=== PATIENT | female | born 1990 | race Caucasian/White ===

== ENCOUNTER 2020-11-17 13:03 | Outpatient (CLI) | payer OTHER, SELFPAY ==
[2020-11-17] MEDS: RHO(D) IMMUNE GLOBULIN 300 MCG SYRINGE IM (17:36)
== END 2020-11-17 13:04 | disposition home or self-care (01) ==
LOC: ANHLAB 13:07
PROVIDERS: PCP Obstetrics & Gynecology; Visit Provider Obstetrics & Gynecology
DX: Z34.80 Encounter for supervision of other normal pregnancy, unspecified trimester (principal); Z3A.00 Weeks of gestation of pregnancy not specified
CPT/HCPCS: 36415; 85461; 90384; J2790

== ENCOUNTER 2021-01-18 05:10 | Inpatient (IN) | payer OTHER, SELFPAY ==
[2021-01-18] VITALS (81 sets, daily range): BP systolic 120–157; BP diastolic 73–118; PULSE 71–115; RESP 14–18; TEMP 36.6–37.3; O2SAT 99–100; BMI 28.2
--- NOTE | ~2021-01-18 | US_ITS ---
EXAMINATION: US pelvic complete DATE: 01/18/2021 14:55 INDICATION: Vaginal bleeding 2 hours . Assess for retained products of conception. TECHNIQUE: Multiple transabdominal sonographic images of the pelvis were obtained. COMPARISON: None. FINDINGS: The uterus measures 8.8 x 12.8 x 10.1 cm. The endometrial complex measures 10 mm in thickness at the fundus. The more caudal endometrial canal at the lower uterine segment is however markedly thickened , measuring up to 6.8 cm AP diameter on the sagittal imaging and contains a large amount of heterogen eous echogenic and hypoechoic material. There does appear to be a small region with internal vascular flow on color Doppler within this material consistent with retained products of conception. The ovar ies are not visualized. No evident free fluid in the pelvis. IMPRESSION: 1. Likely retained products of conception with large amount of heterogeneous material with vascular f low on color Doppler within the endometrial canal the lower uterine segment which is thickened to 6.8 cm. Reviewed, dictated and finalized at location A. IMPRESSION: 1. Likely retained products of conception with large amount of heterogeneous ma terial with vascular flow on color Doppler within the endometrial canal the low er uterine segment which is thickened to 6.8 cm.
--- NOTE | 2021-01-18 05:29 | LDADM ---
This patient, Katherine Moran, was admitted to Labor/Delivery/Recovery 104 on 01/18/21 at 05:10. Plans for labor, pain management and were discussed with patient. Patient/family oriented to hospital policies and general routines including ID bracelet, bed and alarms, visiting hours, pain management, procedures, bathroom and other care routines, personal items, smoking policy, room service/diet and guest tray routines, security routines, and visiting hours. Patient/Family are encouraged to report perceived risks to care and to ask questions if they do not understand what they are told or what they should do. See OBIX for further documentation.
[2021-01-18 05:48] LABS: Basophils Absolute Auto 0.1 K/mm3 (0.0-0.1); Basophils Percent Auto 0.7 % (0.2-1.2); Eosinophils Absolute Auto 0.2 K/mm3 (0-0.3); Eosinophils Percent Auto 1.7 % (0-4.4); Hematocrit 32.2 % (37.0-47.0); Immature Granulocyte Absolute 0.47 K/mm3 (0.00-0.031); Immature Granulocyte Percent A 4.3 % (0-0.5); Lymphocytes Absolute Auto 3.37 K/mm3 (0.9-3.2); Lymphocytes Percent Auto 30.9 % (18.3-44.2); Mean Corpuscular HGB Conc 34.2 g/dl (32-36); Mean Corpuscular Hemoglobin 33.5 pg (26-34); Mean Corpuscular Volume 98.2 fl (80-100); Monocytes Absolute Auto 0.6 K/mm3 (0.1-0.6); Monocytes Percent Auto 5.6 % (2.6-8.5); Neutrophils Absolute Auto 6.2 K/mm3 (1.3-6.7); Neutrophils Percent Auto 56.8 % (45.5-73.1); Platelet Count Result 155 k/mm3 (150-375); Red Blood Count 3.28 M/mm3 (4.2-5.4); Red Cell Distribution Width 13.5 % (11.5-14.5); White Blood Count 10.9 K/mm3 (4.5-10.0)
[2021-01-18] MEDS: OXYTOCIN 30 UNITS/NS 500 ML 30 UNITS/500 ML BAG IV CONT (05:52)
[2021-01-18] MEDS: LACTATED RINGERS 1,000 ML 125 ML IV CONT ×2 (05:52→09:22)
[2021-01-18 05:58] LABS: Alanine Aminotransferase 10 U/L (4-35); Albumin Level 3.4 g/dL (3.5-5.1); Alkaline Phosphatase 119 U/L (38-126); Anion Gap 6 mmol/L (8-16); Aspartate Amino Transferase 20 U/L (14-36); Bilirubin,Total 0.6 mg/dL (0.2-1.3); Blood Urea Nitrogen 10 mg/dL (7-17); Carbon Dioxide 21 mmol/L (22-30); Chloride 107 mmol/L (98-107); Estimated CRCL calculation 119 ml/min; Estimated Glomerular Filt Rate > 60; Glucose 97 mg/dL (65-105); Potassium 3.9 mmol/L (3.4-5.0); Sodium 134 mmol/L (137-145); Uric Acid 4.8 mg/dL (2.5-7.5)
--- NOTE | 2021-01-18 05:59 | PM.IMHP ---
H&P: HPI History of Present Illness Date/Time: 01/18/21 05:59 30-year-old 1 para 0 whose last menstrual period was 04/29/2020, EDC is 01/31/2021, presents at 38 and half weeks gestation for induction labor. She has a 10 week ultrasound that confirmed dates. Her blood pressures with enlarged CD she is negative for group B strep Chief Complaint: induction of labor secondary to elevated blood pressure Review of Systems Review of Systems: All systems reviewed & are unremarkable except as noted in HPI and below PMFSH Family History Family History Father Hypertension Grandparent Gout Diabetes mellitus Cancer Heart disease Social History Social History Smoking status: Never smoker Substance use: never Spiritual care concerns: No Meds Home Medications and Allergies Home Medications Medication Instructions Recorded Confirmed Type prenat.vits,radha,jbg-ghbi-hbanq 1 tablet PO HS 01/04/21 01/04/21 History [ #2] Allergies Allergy/AdvReac Type Severity Reaction Status Date / Time No Known Allergies Allergy Verified 01/04/21 15:41 Vital Signs Vital Signs - 24 hr 01/18/21 05:35 01/18/21 05:45 Pulse Rate 95 102 H Blood Pressure 141/96 H 141/102 H Exam Const: General: no acute distress Eyes: General: appearance normal, both eyes and all related structures Neck: Neck: supple and no JVD Thyroid: thyroid normal Resp: Effort & Inspection: normal respiratory effort Auscultation: clear to auscultation bilaterally Cardio: Rate: regular rate Rhythm: regular rhythm GI: Inspection: non-distended GI Palp: Yes Soft to palpation, No Tenderness to palpation present (GI) and No Guarding due to palpation present (GI) Auscultation: normal bowel sounds : External Female Exam: normal external appearance Speculum Exam - Vagina: normal appearance of the vagina Speculum Exam - Cervix: Cervical os closed ( cervix 2/60/2. AROM clear. FHTs reassuring) Skin: General skin exam: no rashes or lesions noted Extrem: General: normal to inspection and no edema Psych: Mental Status: mental status grossly normal Affect: normal affect H&P: Results Labs Labs: Short CBC 01/18/21 Range/Units 05:40 WBC 10.9 H (4.5-10.0) K/mm3 Hgb 11.0 L (12.0-15.0) g/dL Hct 32.2 L (37.0-47.0) % Plt Count 155 (150-375) k/mm3 BMP 01/18/21 05:40 Sodium 134 L Potassium 3.9 Chloride 107 Carbon Dioxide 21 L BUN 10 Creatinine 0.70 Glucose 97 Calcium 9.0 Liver Function 01/18/21 Range/Units 05:40 Total Bilirubin 0.6 (0.2-1.3) mg/dL AST 20 (14-36) U/L ALT 10 (4-35) U/L Alkaline Phosphatase 119 (38-126) U/L Albumin 3.4 L (3.5-5.1) g/dL Assessment and Plan Additional Plan impression: 38+ week with elevated blood pressures Plan: Medical induction of labor. PIH labs are pending. she is an epidural candidate
--- NOTE | 2021-01-18 06:52 | WPDANESEPP ---
Anes - Eval Pre Procedure Procedure: Labor epidural Date/Time: 01/18/21 06:52 Surgeon: Erickson Preop Diagnosis: pain during labor Pre Op Diagnosis: IOL Patient Data Age: 30 Gender: F Height: 1.75 m Weight: 86.8 kg Last Vital Signs Pulse 84 01/18/21 06:45 BP 149/94 H 01/18/21 06:45 Allergies Allergy/AdvReac Type Severity Reaction Status Date / Time No Known Allergies Allergy Verified 01/04/21 15:41 Home Medications Medication Instructions Recorded Confirmed Type prenat.vits,radha,wdz-[id number] 1 tablet PO HS 01/04/21 01/18/21 History [ #2] Laboratory Tests 01/18/21 01/18/21 01/18/21 05:40 05:40 05:40 WBC 10.9 K/mm3 H K/mm3 (4.5-10.0) RBC 3.28 M/mm3 L M/mm3 (4.2-5.4) Hgb 11.0 g/dL L g/dL (12.0-15.0) Hct 32.2 % L % (37.0-47.0) MCV 98.2 fl fl (80-100) MCH 33.5 pg pg (26-34) MCHC 34.2 g/dl g/dl (32-36) RDW 13.5 % % (11.5-14.5) Plt Count 155 k/mm3 k/mm3 (150-375) MPV 12.0 fl H fl (7.4-10.4) Immature Gran % (Auto) 4.3 % H % (0-0.5) Neut % (Auto) 56.8 % % (45.5-73.1) Lymph % (Auto) 30.9 % % (18.3-44.2) [place] % (Auto) 5.6 % % (2.6-8.5) Eos % (Auto) 1.7 % % (0-4.4) Baso % (Auto) 0.7 % % (0.2-1.2) Lymph # (Auto) 3.37 K/mm3 H K/mm3 (0.9-3.2) [place] # (Auto) 0.6 K/mm3 K/mm3 (0.1-0.6) Eos # (Auto) 0.2 K/mm3 K/mm3 (0-0.3) Baso # (Auto) 0.1 K/mm3 K/mm3 (0.0-0.1) Abs Immat Gran (auto) 0.47 K/mm3 H K/mm3 (0.00-0.031) Absolute Neuts (auto) 6.2 K/mm3 K/mm3 (1.3-6.7) Absolute Nucleated RBC 0.0 K/mm3 K/mm3 (0.0-0.012) Nucleated RBC % 0.0 % % (0.0-0.2) Sodium 134 mmol/L L mmol/L (137-145) Potassium 3.9 mmol/L mmol/L (3.4-5.0) Chloride 107 mmol/L mmol/L (98-107) Carbon Dioxide 21 mmol/L L mmol/L (22-30) Anion Gap 6 mmol/L L mmol/L (8-16) BUN 10 mg/dL mg/dL (7-17) Creatinine 0.70 mg/dL mg/dL (0.7-1.0) Estim Creat Clear Calc 119 ml/min ml/min Estimated GFR > 60 (59 - ) Glucose 97 mg/dL mg/dL (65-105) Uric Acid 4.8 mg/dL mg/dL (2.5-7.5) Calcium 9.0 mg/dL mg/dL (8.4-10.2) Total Bilirubin 0.6 mg/dL mg/dL (0.2-1.3) AST 20 U/L U/L (14-36) ALT 10 U/L U/L (4-35) Alkaline Phosphatase 119 U/L U/L (38-126) Total Protein 6.0 g/dL L g/dL (6.3-8.2) Albumin 3.4 g/dL L g/dL (3.5-5.1) RPR Pending Patient hx anesthesia problems: none Family hx anesthesia problems: none PMFSH Family History Family History Father Hypertension Grandparent Gout Diabetes mellitus Cancer Heart disease Social History Social History Smoking status: Never smoker Substance use: never Spiritual care concerns: No Exam Day of Procedure 01/18/21 06:52
[2021-01-18 10:20] LABS: Rapid Plasma Reagin Non-Reactive (NonReactive)
--- NOTE | 2021-01-18 11:20 | PM.OBPNVD ---
OB - PN: Subj Subjective Date/time seen: 01/18/21 11:20 cx complte fhts reassuring epidural working begin pushing OB - PN: Obj Data Labs CBC & Chem 7: 01/18/21 05:40 01/18/21 05:40 Labs: Laboratory Results - last 24 hr 01/18/21 01/18/21 01/18/21 05:40 05:40 05:40 WBC 10.9 H RBC 3.28 L Hgb 11.0 L Hct 32.2 L MCV 98.2 MCH 33.5 MCHC 34.2 RDW 13.5 Plt Count 155 MPV 12.0 H Immature Gran % (Auto) 4.3 H Neut % (Auto) 56.8 Lymph % (Auto) 30.9 [place] % (Auto) 5.6 Eos % (Auto) 1.7 Baso % (Auto) 0.7 Lymph # (Auto) 3.37 H [place] # (Auto) 0.6 Eos # (Auto) 0.2 Baso # (Auto) 0.1 Abs Immat Gran (auto) 0.47 H Absolute Neuts (auto) 6.2 Absolute Nucleated RBC 0.0 Nucleated RBC % 0.0 Sodium 134 L Potassium 3.9 Chloride 107 Carbon Dioxide 21 L Anion Gap 6 L BUN 10 Creatinine 0.70 Estim Creat Clear Calc 119 Estimated GFR > 60 Glucose 97 Uric Acid 4.8 Calcium 9.0 Total Bilirubin 0.6 AST 20 ALT 10 Alkaline Phosphatase 119 Total Protein 6.0 L Albumin 3.4 L RPR Non-reactive Blood Type Antibody Screen Antibody Identification Antigen Identification LUPE, IgG Interpret LUPE, Poly Interpret LUPE, Complement Interp 01/18/21 05:40 WBC RBC Hgb Hct MCV MCH MCHC RDW Plt Count MPV Immature Gran % (Auto) Neut % (Auto) Lymph % (Auto) [place] % (Auto) Eos % (Auto) Baso % (Auto) Lymph # (Auto) [place] # (Auto) Eos # (Auto) Baso # (Auto) Abs Immat Gran (auto) Absolute Neuts (auto) Absolute Nucleated RBC Nucleated RBC % Sodium Potassium Chloride Carbon Dioxide Anion Gap BUN Creatinine Estim Creat Clear Calc Estimated GFR Glucose Uric Acid Calcium Total Bilirubin AST ALT Alkaline Phosphatase Total Protein Albumin RPR Blood Type O Negative Antibody Screen Positive Antibody Identification Passive Due to RH Imm Glob Antigen Identification Cancelled LUPE, IgG Interpret Not Performed LUPE, Poly Interpret Negative LUPE, Complement Interp Not Performed OB - PN A/P Time Spent With Patient Time: Total time spent is greater than 50% in coordination of care (as documented) at patient's floor/unit and/or counseling patient:
--- NOTE | 2021-01-18 12:35 | P.PCNOB_ITS ---
OB - Delivery Note Procedure Delivery date: 01/18/21 Procedure: mil events: Induced HTN Intrapartal events: None Induction method: AROM Delivery augmentation: pitocin Delivery monitor: external FHT Route of delivery: Episiotomy description: None Laceration Description: Perineal - 1st Degree Delivery repair: vicryl Specimen: No Quantitative Blood Loss (ml): 158 Anesthesia type: Epidural Disposition: floor [place] Baby Date of : 01/18/21 Time of : 12:22 Weeks of gestation at delivery: 38 Weight (pounds): 6 Weight (ounces): 7 presentation: vertex position: Right Occiput Anterior Placenta delivery description: Spontaneous cord vessel description: 3 Vessels score one minute: 9 score five minutes: 9
[2021-01-18] MEDS: OXYTOCIN 30 UNITS/NS 500 ML 30 UNITS/500 ML BAG 125 UNITS IV CONT (13:00)
[2021-01-18] MEDS: BENZOCAINE 20% AER SPR (*SP) 56 GM CAN 1 SPRAY TOPICAL (14:22)
[2021-01-18] MEDS: WITCH HAZEL 40 PADS 1 PAD TOPICAL (14:22)
[2021-01-18] MEDS: IBUPROFEN 600 MG TABLET PO ×2 (14:22→20:30)
[2021-01-18] MEDS: miSOPROStol 200 MCG TABLET 800 MCG RECTAL (15:20)
--- NOTE | 2021-01-18 15:21 | PM.OBPNVD ---
OB - PN: Subj Subjective Date/time seen: 01/18/21 15:21 us shows retained placenta. patient continues to trickle. ofered suction d and c. patien agreeable OB - PN: Obj Data Labs CBC & Chem 7: 01/18/21 05:40 01/18/21 05:40 Labs: Laboratory Results - last 24 hr 01/18/21 01/18/21 01/18/21 05:40 05:40 05:40 WBC 10.9 H RBC 3.28 L Hgb 11.0 L Hct 32.2 L MCV 98.2 MCH 33.5 MCHC 34.2 RDW 13.5 Plt Count 155 MPV 12.0 H Immature Gran % (Auto) 4.3 H Neut % (Auto) 56.8 Lymph % (Auto) 30.9 [place] % (Auto) 5.6 Eos % (Auto) 1.7 Baso % (Auto) 0.7 Lymph # (Auto) 3.37 H [place] # (Auto) 0.6 Eos # (Auto) 0.2 Baso # (Auto) 0.1 Abs Immat Gran (auto) 0.47 H Absolute Neuts (auto) 6.2 Absolute Nucleated RBC 0.0 Nucleated RBC % 0.0 Sodium 134 L Potassium 3.9 Chloride 107 Carbon Dioxide 21 L Anion Gap 6 L BUN 10 Creatinine 0.70 Estim Creat Clear Calc 119 Estimated GFR > 60 Glucose 97 Uric Acid 4.8 Calcium 9.0 Total Bilirubin 0.6 AST 20 ALT 10 Alkaline Phosphatase 119 Total Protein 6.0 L Albumin 3.4 L RPR Non-reactive Blood Type Antibody Screen Antibody Identification Antigen Identification LUPE, IgG Interpret LUPE, Poly Interpret LUPE, Complement Interp 01/18/21 05:40 WBC RBC Hgb Hct MCV MCH MCHC RDW Plt Count MPV Immature Gran % (Auto) Neut % (Auto) Lymph % (Auto) [place] % (Auto) Eos % (Auto) Baso % (Auto) Lymph # (Auto) [place] # (Auto) Eos # (Auto) Baso # (Auto) Abs Immat Gran (auto) Absolute Neuts (auto) Absolute Nucleated RBC Nucleated RBC % Sodium Potassium Chloride Carbon Dioxide Anion Gap BUN Creatinine Estim Creat Clear Calc Estimated GFR Glucose Uric Acid Calcium Total Bilirubin AST ALT Alkaline Phosphatase Total Protein Albumin RPR Blood Type O Negative Antibody Screen Positive Antibody Identification Passive Due to RH Imm Glob Antigen Identification Cancelled LUPE, IgG Interpret Not Performed LUPE, Poly Interpret Negative LUPE, Complement Interp Not Performed Imaging Radiologist's impression: Impressions Pelvis Ultrasound 01/18/21 15:02 IMPRESSION: 1. Likely retained products of conception with large amount of heterogeneous material with vascular flow on color Doppler within the endometrial canal the lower uterine segment which is thickened to 6.8 cm. OB - PN A/P Time Spent With Patient Time: Total time spent is greater than 50% in coordination of care (as documented) at patient's floor/unit and/or counseling patient:
--- NOTE | 2021-01-18 15:30 | WPDANESEPPF ---
Anes - Initial Pre Proc Eval Procedure: Operation Date: 01/18/21 15:30 Proposed Procedures p Suction Dilitation and Curettage - Mazin Merino MD Date/Time: 01/18/21 15:30 Surgeon: Mazin Merino MD Pre Op Diagnosis: IOL Patient Data Age: 30 Gender: F Height: 5 ft 9 in Weight: 86.8 kg Last Vital Signs Temp 36.6 C 01/18/21 09:42 Pulse 93 01/18/21 14:45 BP 129/92 H 01/18/21 14:45 Pulse Ox 99 01/18/21 11:31 Allergies Allergy/AdvReac Type Severity Reaction Status Date / Time No Known Allergies Allergy Verified 01/04/21 15:41 Home Medications Medication Instructions Recorded Confirmed Type prenat.vits,radha,ldx-ungj-kalad 1 tablet PO HS 01/04/21 01/18/21 History [ #2] Laboratory Tests 01/18/21 01/18/21 01/18/21 05:40 05:40 05:40 WBC 10.9 K/mm3 H K/mm3 (4.5-10.0) RBC 3.28 M/mm3 L M/mm3 (4.2-5.4) Hgb 11.0 g/dL L g/dL (12.0-15.0) Hct 32.2 % L % (37.0-47.0) MCV 98.2 fl fl (80-100) MCH 33.5 pg pg (26-34) MCHC 34.2 g/dl g/dl (32-36) RDW 13.5 % % (11.5-14.5) Plt Count 155 k/mm3 k/mm3 (150-375) MPV 12.0 fl H fl (7.4-10.4) Immature Gran % (Auto) 4.3 % H % (0-0.5) Neut % (Auto) 56.8 % % (45.5-73.1) Lymph % (Auto) 30.9 % % (18.3-44.2) [place] % (Auto) 5.6 % % (2.6-8.5) Eos % (Auto) 1.7 % % (0-4.4) Baso % (Auto) 0.7 % % (0.2-1.2) Lymph # (Auto) 3.37 K/mm3 H K/mm3 (0.9-3.2) [place] # (Auto) 0.6 K/mm3 K/mm3 (0.1-0.6) Eos # (Auto) 0.2 K/mm3 K/mm3 (0-0.3) Baso # (Auto) 0.1 K/mm3 K/mm3 (0.0-0.1) Abs Immat Gran (auto) 0.47 K/mm3 H K/mm3 (0.00-0.031) Absolute Neuts (auto) 6.2 K/mm3 K/mm3 (1.3-6.7) Absolute Nucleated RBC 0.0 K/mm3 K/mm3 (0.0-0.012) Nucleated RBC % 0.0 % % (0.0-0.2) Sodium 134 mmol/L L mmol/L (137-145) Potassium 3.9 mmol/L mmol/L (3.4-5.0) Chloride 107 mmol/L mmol/L (98-107) Carbon Dioxide 21 mmol/L L mmol/L (22-30) Anion Gap 6 mmol/L L mmol/L (8-16) BUN 10 mg/dL mg/dL (7-17) Creatinine 0.70 mg/dL mg/dL (0.7-1.0) Estim Creat Clear Calc 119 ml/min ml/min Estimated GFR > 60 (59 - ) Glucose 97 mg/dL mg/dL (65-105) Uric Acid 4.8 mg/dL mg/dL (2.5-7.5) Calcium 9.0 mg/dL mg/dL (8.4-10.2) Total Bilirubin 0.6 mg/dL mg/dL (0.2-1.3) AST 20 U/L U/L (14-36) ALT 10 U/L U/L (4-35) Alkaline Phosphatase 119 U/L U/L (38-126) Total Protein 6.0 g/dL L g/dL (6.3-8.2) Albumin 3.4 g/dL L g/dL (3.5-5.1) RPR Non-reactive (NonReactive) Blood Type Antibody Screen Antibody Identification Antigen Identification LUPE, IgG Interpret LUPE, Poly Interpret LUPE, Complement Interp 05/12/21 05:40 WBC RBC Hgb Hct MCV MCH MCHC RDW Plt Count MPV Immature Gran % (Auto) Neut % (Auto) Lymph % (Auto) [place] % (Auto) Eos % (Auto) Baso % (Auto) Lymph # (Auto) [place] # (Auto) Eos # (Auto) Baso # (Auto) Abs Immat Gran (auto) Absolute Neuts (auto) Absolute Nucleated RBC Nucleated RBC % Sodium Potassium Chloride Carbon Dioxide Anion Gap BUN Creatinine Estim Creat Clear Calc Estimated GFR Glucose Uric Acid Calcium Total Bilirubin AST ALT Alkaline Phosphatase Total Protein Albumin RPR Blood Type O Negative Antibody Screen Positive Antibody Id
--- NOTE | 2021-01-18 16:01 | PM.PROC ---
Procedure Note - Detailed Date of procedure: 01/18/21 Pre-op diagnosis: IOL Surgeon: Mazin Merino MD Postop diagnosis: Retained placenta bleeding Procedure: Suction dilatation curettage Anesthesia: IV sedation and epidural EBL: 700cc Findings: Retained placenta and multiple clots in the uterus. Complications: Description of procedure: The patient was prepped draped in the normal sterile fashion placed in the dorsal lithotomy position. Under excellent IV sedation weighted speculum placed post formed vagina anterior lip of the cervix was grasped with the ring forceps liver clots were seen the uterus was then scraped over the entire 360? with 12. Suction curette removing lot of tissue and clot. The uterus clamped down nicely the small 1st degree tear was noted to be intact and was not bleeding. [id number] worth of clot and debris were noted in the uterus. No more bleeding was noted the patient was taken to recovery all sponge,, instrument counts were correct. There were no immediate complications
[2021-01-18] MEDS: ceFAZolin SODIUM 1 GM VIAL IV PUSH (16:05)
[2021-01-18] MEDS: LACTATED RINGERS 1,000 ML 30 ML IV CONT (16:07)
--- NOTE | 2021-01-18 17:15 | PC.NURSE ---
Patient transferred to post room #279 via stretcher. Support person present. Oriented to unit, room, information board, rooming in, admission packet and security measures. Patient verbalizes understanding.
[2021-01-19 00:29] VITALS: BP 133/93; PULSE 88; PULSE 99; RESP 16; RESP 18; TEMP 36.6; O2SAT 98; O2SAT 99
[2021-01-19] MEDS: IBUPROFEN 600 MG TABLET PO ×3 (04:03→16:43)
[2021-01-19] MEDS: ACETAMINOPHEN 325 MG TABLET 650 MG PO ×3 (04:03→16:42)
[2021-01-19 04:37] VITALS: BP 143/91; PULSE 93; RESP 16; TEMP 36.7; O2SAT 98
[2021-01-19 05:53] LABS: Hematocrit 24.2 % (37.0-47.0); Hemoglobin 8.4 g/dL (12.0-15.0)
--- NOTE | 2021-01-19 07:44 | PM.OBPNVD ---
OB - PN: Subj Subjective Date/time seen: 01/19/21 07:44 Patient comments: no complaints and pain well controlled baby status: doing well and nursing well OB - PN: Obj Data Labs CBC & Chem 7: 01/19/21 04:07 01/18/21 05:40 Labs: Laboratory Results - last 24 hr 01/18/21 01/18/21 01/19/21 05:40 05:40 04:07 Hgb 8.4 L Hct 24.2 L RPR Non-reactive Antibody Identification Passive Due to RH Imm Glob Antigen Identification Cancelled LUPE, IgG Interpret Not Performed LUPE, Poly Interpret Negative LUPE, Complement Interp Not Performed Imaging Radiologist's impression: Impressions Pelvis Ultrasound 01/18/21 15:02 IMPRESSION: 1. Likely retained products of conception with large amount of heterogeneous material with vascular flow on color Doppler within the endometrial canal the lower uterine segment which is thickened to 6.8 cm. OB - PN A/P Plan day: 1 Plan: routine care Time Spent With Patient Time: Total time spent is greater than 50% in coordination of care (as documented) at patient's floor/unit and/or counseling patient: Time with patient: less than 15 minutes Review of Systems Review of Systems: All systems reviewed & are unremarkable except as noted in HPI and below Exam Const: General: no acute distress Eyes: General: appearance normal, both eyes and all related structures Neck: Neck: supple and no JVD Thyroid: thyroid normal Resp: Effort & Inspection: normal respiratory effort Auscultation: clear to auscultation bilaterally Cardio: Rate: regular rate Rhythm: regular rhythm GI: Inspection: non-distended GI Palp: Yes Soft to palpation, No Tenderness to palpation present (GI) and No Guarding due to palpation present (GI) Auscultation: normal bowel sounds : General: Yes bladder normal to palpation External Female Exam: normal external appearance Speculum Exam - Vagina: normal vaginal discharge and No vaginal bleeding Speculum Exam - Cervix: nontender Bimanual exam- vagina & uterus: bladder normal to palpation and No Cervical tenderness present OB/external & speculum: No vaginal bleeding Skin: General skin exam: no rashes or lesions noted Extrem: General: normal to inspection and no edema Psych: Mental Status: mental status grossly normal Affect: normal affect
--- NOTE | 2021-01-19 07:45 | PC.NURSE ---
PT introductions made and plan of care discussed per post , pain management, bottle feeding, daily care activities through out the shift. PT received instructions per one to one discussion, using mom baby care guide as a resource. Pt and fob are recipients of such instructions. No barriers to learning noted. PT verbalized understanding of such care.
[2021-01-19 07:55] VITALS: BP 135/94; PULSE 88; RESP 16; TEMP 37.1; O2SAT 98
[2021-01-19] MEDS: DOCUSATE SODIUM 100 MG CAPSULE PO ×2 (09:57→16:43)
[2021-01-19] MEDS: POLYSACCHARIDE IRON COMPLEX 150 MG CAPSULE PO ×2 (09:57→16:43)
--- NOTE | 2021-01-19 10:55 | WPDANLDPN2 ---
Anes-Prog Note L&D Date/Time: 01/19/21 10:55 Comfortable throughout: labor and delivery Neuraxial method: epidural Epidural/Spinal procedure site: clean & non-tender Neuro status: Neuro function grossly intact. Cardiovascular status: normal Respiratory status: normal Airway patency: baseline Mental status: baseline Post-Op hydration status: normal Vital Signs: Last Vital Signs Temp 37.1 C 01/19/21 07:55 Pulse 88 01/19/21 07:55 Resp 16 01/19/21 07:55 BP 135/94 H 01/19/21 07:55 Pulse Ox 98 01/19/21 07:55 Pain score (VAS): 09/18 I/O: Intake & Output 01/18/21 01/19/21 01/19/21 23:59 07:59 15:59 Intake Total 150 Balance 150 Post-procedural complaints: none Patient feedback: Patient satisfied with anesthetic care.
[2021-01-19 12:00] VITALS: BP 120/85; PULSE 95; RESP 16; TEMP 37; O2SAT 98
[2021-01-19 20:00] VITALS: BP 135/88; PULSE 96; RESP 16; TEMP 36.8; O2SAT 98
[2021-01-20] MEDS: ACETAMINOPHEN 325 MG TABLET 650 MG PO ×2 (00:45→09:12)
[2021-01-20] MEDS: IBUPROFEN 600 MG TABLET PO ×2 (00:45→09:11)
--- NOTE | 2021-01-20 07:30 | PC.NURSE ---
Pt introductions made and plan of care discussed per post , pain management, bottle feeding, daily care activities and pending discharge to home. PT verbalized understanding of such care. PT received discharge instructions per one to one discussion , mom baby care guide and no barriers to learning identified. PT and spouse both recipients of such instructions.
[2021-01-20 08:00] VITALS: BP 136/93; PULSE 100; RESP 16; TEMP 37.1; O2SAT 99
--- NOTE | 2021-01-20 08:00 | PC.NURSE ---
Patient viewed the discharge video Mother & Baby Care, The First Two Weeks . Patient was given the opportunity and encouraged to ask questions. Patient verbalized understanding of information shared and has been given the mother/baby guide for home reference.
--- NOTE | 2021-01-20 08:55 | PM.OBPNVD ---
OB - PN: Subj Subjective Date/time seen: 01/20/21 08:55 Patient comments: no complaints and pain well controlled baby status: doing well and nursing well OB - PN: Obj Data Labs CBC & Chem 7: 01/19/21 04:07 01/18/21 05:40 OB - PN A/P Plan day: 2 Plan: routine care, discharge home and follow up 6 weeks Time Spent With Patient Time: Total time spent is greater than 50% in coordination of care (as documented) at patient's floor/unit and/or counseling patient: Time with patient: less than 15 minutes Review of Systems Review of Systems: All systems reviewed & are unremarkable except as noted in HPI and below Exam Const: General: no acute distress Eyes: General: appearance normal, both eyes and all related structures Neck: Neck: supple and no JVD Thyroid: thyroid normal Resp: Effort & Inspection: normal respiratory effort Auscultation: clear to auscultation bilaterally Cardio: Rate: regular rate Rhythm: regular rhythm GI: Inspection: non-distended GI Palp: Yes Soft to palpation, No Tenderness to palpation present (GI) and No Guarding due to palpation present (GI) Auscultation: normal bowel sounds : General: Yes bladder normal to palpation External Female Exam: normal external appearance Speculum Exam - Vagina: normal vaginal discharge and No vaginal bleeding Speculum Exam - Cervix: nontender Bimanual exam- vagina & uterus: bladder normal to palpation and No Cervical tenderness present OB/external & speculum: No vaginal bleeding Skin: General skin exam: no rashes or lesions noted Extrem: General: normal to inspection and no edema Psych: Mental Status: mental status grossly normal Affect: normal affect
[2021-01-20] MEDS: POLYSACCHARIDE IRON COMPLEX 150 MG CAPSULE PO (09:12)
[2021-01-20] MEDS: DOCUSATE SODIUM 100 MG CAPSULE PO (09:12)
[2021-01-20 09:15] VITALS: PULSE 100; RESP 16; O2SAT 99
--- NOTE | 2021-01-20 10:30 | PC.NURSE ---
Pt received discharge instructions per protocol and verbalized understanding of such care.
--- NOTE | 2021-01-20 11:00 | PC.NURSE ---
PT discharged to home ambulatory accompanied by spouse and and taken to waiting car. Follow up appts confirmed
[2021-01-21 10:48] VITALS: BP 133/91; PULSE 102; RESP 20; TEMP 36.9; O2SAT 98
--- NOTE | 2021-01-24 07:42 | PM.DS ---
DS: Admitting Diagnosis Admitting Diagnosis Admitting Diagnosis: term iup gest htn DS: Summary Hospital Course Hospital Course: mil undertaken. successful. bp stable pp without complication Time Spent with Patient Time attestation: Total time spent providing and/or coordinating discharge services: Exam Const: General: no acute distress Eyes: General: appearance normal, both eyes and all related structures Neck: Neck: supple and no JVD Thyroid: thyroid normal Resp: Effort & Inspection: normal respiratory effort Auscultation: clear to auscultation bilaterally Cardio: Rate: regular rate Rhythm: regular rhythm GI: Inspection: non-distended GI Palp: Yes Soft to palpation, No Tenderness to palpation present (GI) and No Guarding due to palpation present (GI) Auscultation: normal bowel sounds : General: Yes bladder normal to palpation External Female Exam: normal external appearance Speculum Exam - Vagina: normal vaginal discharge and No vaginal bleeding Speculum Exam - Cervix: nontender Bimanual exam- vagina & uterus: bladder normal to palpation and No Cervical tenderness present OB/external & speculum: No vaginal bleeding Skin: General skin exam: no rashes or lesions noted Extrem: General: normal to inspection and no edema Psych: Mental Status: mental status grossly normal Affect: normal affect DS: Data Data Completed and Pending Completed studies during hospitalization: Pending at discharge 01/18/21 15:53 Surgical [PTH] Routine Discharge Plan Discharge Attending physician on discharge: Mazin Merino Consulting providers: Jm Cardenas Paul Discharging Clinician: Mazin Merino Patient Disposition: Home, Self-Care Activity: may shower, no straining and pelvic rest Diet: heart healthy Wound Care Instructions: follow printed instructions Discharge Instructions: Education: Mom and Baby Guide Given to: Mother Follow-Up: Call your delivering provider's office for an appointment to be seen in: 1 Week Mom and baby should come to the [facility] for the follow-up appointment. Appointment Date/Time: January 21, 2021 at 10:00 am What to expect at your follow-up visit: Blood Pressure Check Call [phone] if you are unable to keep your appointment time. BREAST CARE: * Wear a snug supportive bra. * For engorgement discomfort: Bottle Feeding: * May apply ice packs PERINEAL CARE: * Until bleeding stops, use your kulwinder bottle after urinating * Change your pad frequently throughout the day * You may take sitz baths several times a day (fill your bathtub with warm water and soak for 20 minutes.) Do NOT bathe in the water * No tub baths until seen by your physician - You may shower ACTIVITY: * Rest as much as possible. * Do not exercise or lift anything heavier than your baby (such as laundry or other children.) * Avoid stairs or driving as much as possible. * Do not put anything into the vagina. No douching, tampons, or sexual activity until seen by physician. NOTIFY PHYSICIAN IF YOU HAVE ANY QUESTIONS OR IF ANY OF THE FOLLOWING SYMPTOMS OCCUR: * If your perineum becomes red, swollen, or more painful than what you have experienced in the hospital. * If your vaginal bleeding becomes foul smelling. * If your vaginal bleeding becomes more heavy than a period or if your bleeding changes from pink to bright red. However, you may pass an occasional walnut-sized clot once or twice for the first week . * If you experience a sharp, shooting pain in you calves. * If you discover a hard, reddened area on your breast or if you experience flu-like symptoms. DIET: * Eat regular, well-balanced meals. * Drink plenty of fluids daily. If , drink to thirst. Patient Instructions: Antibiotic Form Stand Alone Forms: General Discharge Information Follow-up/Referrals: Mazin Merino MD [P
== END 2021-01-20 11:00 | disposition home or self-care (01) | DRG 807 ==
LOC: ANHLDR 15:29 → ANHOB2 17:16
PROVIDERS: Admitting Provider Obstetrics & Gynecology; Visit Provider Obstetrics & Gynecology
PROC: 10E0XZZ Delivery of Products of Conception, External Approach (ICD-10-PCS; principal; 2021-01-18 15:30)
DX: O13.4 Gestational [pregnancy-induced] hypertension without significant proteinuria, complicating childbirth (principal); Z37.0 Single live birth; Z3A.38 38 weeks gestation of pregnancy; O36.8330 Maternal care for abnormalities of the fetal heart rate or rhythm, third trimester, not applicable or unspecified; O70.0 First degree perineal laceration during delivery; O72.2 Delayed and secondary postpartum hemorrhage
CPT/HCPCS: 36415; 76856; 80053; 84550; 85014; 85018; 85025; 86592; 86850; 86880; 86900; 86901; 86902; 88305; A9270; J0690; J2590; J2795; J7120

== ENCOUNTER 2023-11-07 15:28 | Outpatient (CLI) | payer OTHER, SELFPAY ==
--- NOTE | ~2023-11-07 | US_ITS ---
EXAMINATION: US OB <=14 wk fetus w TV DATE: 11/07/2023 17:01 INDICATION: Abdominal pain in . TECHNIQUE: Real-time transabdominal and transvaginal pelvic ultrasound was performed. COMPARISON: None. FINDINGS: TRANSABDOMINAL ULTRASOUND: The uterus measures 10.5 x 6.6 x 6.5 cm. TRANSVAGINAL ULTRASOUND: There is an intrauterine gestational sac. A yolk sac is identified. The fet al crown rump length measures 2.4 cm, which correlates with an estimated gestational age of 9 weeks a nd 1 day(s) (+/-) 6 day(s). heart motion is identified measuring 175 beats per minute (bpm) by M-mode Doppler. The right ovary measures 2.5 x 1.8 x 3.0 cm. The left ovary is not visualized. There is no free fluid in the pelvis. IMPRESSION: 1. Single living intrauterine gestation with estimated date of delivery of 06/10/2024. Reviewed, dictated and finalized at location A. [employer]
== END 2023-11-07 15:29 | disposition home or self-care (01) ==
PROVIDERS: PCP Family Medicine; Visit Provider Obstetrics & Gynecology
DX: R10.2 Pelvic and perineal pain (principal)
CPT/HCPCS: 76801; 76817

== ENCOUNTER 2024-02-20 09:20 | Outpatient (CLI) | payer OTHER, SELFPAY ==
--- NOTE | 2024-02-20 | ECG_ITS ---
Test Date: 2024-02-20 09:46:06 Measurements Intervals Milo Rate: 83 P: 50 TX: 151 QRS: 22 QRSD: 77 T: 20 QT: 360 QTc: 424 Interpretive Statements SINUS RHYTHM LOW QRS VOLTAGE IN PRECORDIAL LEADS [QRS DEFLECTION < 1.0 mV IN CHEST LEADS] No previous ECG available for comparison Electronically Signed On 02-20-2024 12:45:23 CDT by Vince Baig M.D.
== END 2024-02-20 09:21 | disposition home or self-care (01) ==
PROVIDERS: Visit Provider Obstetrics & Gynecology
DX: R94.31 Abnormal electrocardiogram [ECG] [EKG] (principal)
CPT/HCPCS: 93005

== ENCOUNTER 2024-03-19 10:43 | Outpatient (RCR) | payer OTHER, SELFPAY ==
[2024-03-20] MEDS: RHO(D) IMMUNE GLOBULIN 300 MCG/2 ML SYRINGE IM (14:03)
== END 2024-06-17 23:59 | disposition home or self-care (01) ==
LOC: ANHLAB 10:43
PROVIDERS: PCP Obstetrics & Gynecology; Visit Provider Obstetrics & Gynecology
DX: O36.0190 Maternal care for anti-D [Rh] antibodies, unspecified trimester, not applicable or unspecified (principal); Z3A.00 Weeks of gestation of pregnancy not specified
CPT/HCPCS: 36415; 85461; 86850; 86900; 86901; 90384; 96372; J2790

== ENCOUNTER 2024-05-09 13:54 | Observation (INO) | payer OTHER, SELFPAY ==
--- NOTE | 2024-05-09 13:54 | OBADM ---
This patient, Katherine Moran, admitted to the OB room OB Post 116 for observation. Patient/family oriented to hospital policies and general routines including ID bracelet, bed and alarms, visiting hours, pain management, procedures, bathroom and other care routines, personal items, smoking policy, room service/diet, and visiting hours. Patient/Family are encouraged to report perceived risks to care and to ask questions if they do not understand what they are told or what they should do.
[2024-05-09 14:15] VITALS: BP 118/80; PULSE 89
[2024-05-09 14:20] VITALS: BMI 27.0
[2024-05-09 14:30] VITALS: BP 122/75; PULSE 87
--- NOTE | 2024-05-09 14:40 | PC.NURSE ---
Called Victorino Mccurdy CNM with pt status. Pt complaining of contractions. Contractions noted q min. Pt has tender area on left side of abdomen. No bleeding or leaking fluid. SVE 1 external/closed internal/thick/soft. Orders received for Procardia 10mg.
[2024-05-09] MEDS: NIFEdipine 10 MG CAPSULE PO (14:46)
[2024-05-09 15:11] LABS: Appearance Urine Sl Cloudy (Clear); Color Urine Yellow (Yellow)
[2024-05-09 15:12] LABS: Glucose Urine UA Negative (Negative); Ketones Urine Negative (Negative); Protein Urine Negative (Negative)
[2024-05-09 15:13] LABS: Bilirubin Urine Negative (Negative); Blood Urine Negative (Negative); Nitrate Urine Negative (Negative); Urobilinogen Urine 0.2 mg/dL (<2.0)
[2024-05-09 15:14] LABS: Add Urine Microscopic? YES; Leukocyte Esterase Ur 2+ LEU/UL (Negative); RBC Urine 0-2 /hpf (0-2)
[2024-05-09 15:15] LABS: Squamous Epithelial Cell Urine Occasional /hpf (Few); WBC Urine 0-3 /hpf (0-3)
[2024-05-09 15:16] LABS: Bacteria Urine Trace /hpf
--- NOTE | 2024-05-09 16:20 | PC.NURSE ---
Called Victorino Mccurdy CNM with update. Informed of continued contractions noted on tracing. Pt states that she has had no relief from Procardia 1.5hrs ago. Orders received for Terbutaline and labs.
[2024-05-09] MEDS: TERBUTALINE SULFATE 1 MG/ML VIAL 0.25 MG SUB-Q (16:29)
[2024-05-09 16:42] LABS: Basophils Absolute Auto 0.1 K/mm3 (0.0-0.1); Basophils Percent Auto 0.6 % (0.2-1.2); Eosinophils Absolute Auto 0.1 K/mm3 (0-0.3); Eosinophils Percent Auto 0.5 % (0-4.4); Hematocrit 30.6 % (37.0-47.0); Hemoglobin 10.4 g/dL (12.0-15.0); Immature Granulocyte Absolute 0.59 K/mm3 (0.00-0.031); Immature Granulocyte Percent A 5.3 % (0-0.5); Lymphocytes Absolute Auto 2.66 K/mm3 (0.9-3.2); Mean Corpuscular Hemoglobin 32.6 pg (26-34); Mean Corpuscular Volume 95.9 fl (80-100); Mean Platelet Volume 10.7 fl (7.4-10.4); Monocytes Absolute Auto 0.7 K/mm3 (0.1-0.6); Monocytes Percent Auto 5.9 % (2.6-8.5); Neutrophils Absolute Auto 7.1 K/mm3 (1.3-6.7); Neutrophils Percent Auto 63.7 % (45.5-73.1); Platelet Count Result 210 k/mm3 (150-375); Red Blood Count 3.19 M/mm3 (4.2-5.4); Red Cell Distribution Width 13.4 % (11.5-14.5); White Blood Count 11.1 K/mm3 (4.5-10.0)
[2024-05-09 17:05] LABS: INR 0.9
[2024-05-09 17:06] LABS: Fibrinogen 515 mg/dl (215-510); Partial Thromboplastin Time 23.6 Seconds (22.3-36.8)
--- NOTE | 2024-06-01 14:34 | P.PNOB_ITS ---
OB - Triage/Final Diagnosis Visit Information Date of evaluation: 05/12/24 Reason for evaluation: threatened labor Comments/Additional reasons for admission: I have assessed the risk for this patient, Katherine Moran, and determined that she would benefit from observation care. Evaluation Laboratory results: Laboratory Tests 05/09/24 05/09/24 14:07 16:32 WBC 11.1 H RBC 3.19 L Hgb 10.4 L Hct 30.6 L MCV 95.9 MCH 32.6 MCHC 34.0 RDW 13.4 Plt Count 210 MPV 10.7 H Immature Gran % (Auto) 5.3 H Neut % (Auto) 63.7 Lymph % (Auto) 24.0 [place] % (Auto) 5.9 Eos % (Auto) 0.5 Baso % (Auto) 0.6 Lymph # (Auto) 2.66 [place] # (Auto) 0.7 H Eos # (Auto) 0.1 Baso # (Auto) 0.1 Abs Immat Gran (auto) 0.59 H Absolute Neuts (auto) 7.1 H Absolute Nucleated RBC 0.000 Nucleated RBC % 0.0 PT 13.0 INR 0.9 APTT 23.6 Fibrinogen 515 H Urine Color Yellow Urine Appearance Sl cloudy Urine pH 6.0 Ur Specific [place] 1.010 Urine Protein Negative Urine Glucose (UA) Negative Urine Ketones Negative Ur Blood (Man) Negative Urine Nitrate Negative Urine Bilirubin Negative Urine Urobilinogen 0.2 Ur Leukocyte Esterase 2+ H Urine RBC 0-2 Urine WBC 0-3 Ur Squamous Epith Cells Occasional Urine Bacteria Trace Comments: Pt evaluated on unit by RN. Plan of care discussed with CNM. FHTs reassuring. VSS. No evidence of active labor or ROM.
== END 2024-05-09 18:17 ==
PROVIDERS: Advanced Practice Midwife; Admitting Provider Obstetrics & Gynecology; Visit Provider Obstetrics & Gynecology
DX: O47.03 False labor before 37 completed weeks of gestation, third trimester (principal); Z3A.35 35 weeks gestation of pregnancy
CPT/HCPCS: 36415; 81001; 85025; 85384; 85610; 85730; 87077; 87086; 87088; 96372; A9270; G0378; G0379; J3105

== ENCOUNTER 2024-06-03 06:26 | Inpatient (IN) | payer OTHER, SELFPAY ==
[2024-06-03] VITALS (173 sets, daily range): BP systolic 100–135; BP diastolic 63–91; PULSE 30–117; RESP 14–18; TEMP 36.4–37.3; O2SAT 85–100; BMI 27.0
--- NOTE | 2024-06-03 06:26 | LDADM ---
This patient, Katherine Moran, was admitted to Labor/Delivery/Recovery 107 on 06/03/24 at 06:26. Plans for labor, pain management and were discussed with patient. Patient/family oriented to hospital policies and general routines including ID bracelet, bed and alarms, visiting hours, pain management, procedures, bathroom and other care routines, personal items, smoking policy, room service/diet and guest tray routines, security routines, and visiting hours. Patient/Family are encouraged to report perceived risks to care and to ask questions if they do not understand what they are told or what they should do. See OBIX for further documentation.
--- NOTE | 2024-06-03 06:35 | PM.IMHP ---
H&P: HPI History of Present Illness Date/Time: 06/03/24 06:35 Chief Complaint: induction of labor at term Narrative: 34-year-old 2 para 1 with a last menstrual 09/07/2023, EDC of 06/10/2024, presents at 38 weeks gestation for induction of labor. She filter 1hour but passed her 3hour GTT she has a history of preeclampsia but her blood pressures been reasonable this she is negative for group B strep PMFSH Family History Family History Father Hypertension Heart disease Grandparent Diabetes mellitus Gout Heart disease Cancer Social History Social History Smoking status: Never smoker Substance use: never Spiritual care concerns: No Meds Home Medications and Allergies Home Medications Medication Instructions Recorded Confirmed Type prenat.vits,radha,nhz-ebcj-bavkh 1 tablet PO HS 01/04/21 05/20/24 History Allergies Allergy/AdvReac Type Severity Reaction Status Date / Time No Known Allergies Allergy Verified 05/20/24 15:30 Exam Const: General: cooperative, healthy appearing and comfortable Nutritional Appearance: average body habitus Orientation/consciousness: oriented to person, oriented to place and oriented to time Resp: Effort & Inspection: normal respiratory effort Cardio: Rate: regular rate Rhythm: regular rhythm Heart sounds: S1 normal heart sound present and S2 normal heart sound present GI: Inspection: normal to inspection ( gravid soft uterus) : Speculum Exam - Cervix: normal appearance of the cervix and Other cervical findings present ( delivered through the) Assessment and Plan Assessment and plan (1) Term : Code(s): Z34.90 - Encounter for supervision of normal , unspecified, unspecified trimester Status: Acute Assessment and Plan: medical induction of labor. Spontaneous vaginal delivery expected. She has an epidural candidate
[2024-06-03 07:02] LABS: Basophils Absolute Auto 0.1 K/mm3 (0.0-0.1); Basophils Percent Auto 0.8 % (0.2-1.2); Eosinophils Absolute Auto 0.1 K/mm3 (0-0.3); Eosinophils Percent Auto 1.5 % (0-4.4); Hematocrit 32.3 % (37.0-47.0); Hemoglobin 10.9 g/dL (12.0-15.0); Immature Granulocyte Absolute 0.24 K/mm3 (0.00-0.031); Immature Granulocyte Percent A 2.9 % (0-0.5); Lymphocytes Absolute Auto 2.98 K/mm3 (0.9-3.2); Lymphocytes Percent Auto 36.2 % (18.3-44.2); Mean Corpuscular HGB Conc 33.7 g/dl (32-36); Mean Corpuscular Volume 97.9 fl (80-100); Mean Platelet Volume 11.5 fl (7.4-10.4); Monocytes Absolute Auto 0.5 K/mm3 (0.1-0.6); Monocytes Percent Auto 6.4 % (2.6-8.5); Neutrophils Absolute Auto 4.3 K/mm3 (1.3-6.7); Neutrophils Percent Auto 52.2 % (45.5-73.1); Platelet Count Result 188 k/mm3 (150-375); Red Cell Distribution Width 14.4 % (11.5-14.5); White Blood Count 8.2 K/mm3 (4.5-10.0)
--- NOTE | 2024-06-03 07:03 | P.PNAN_ITS ---
Anes - Eval Pre Procedure Procedure: labor epidural Date/Time: 06/03/24 07:03 Surgeon: inocencio Preop Diagnosis: pain during labor Pre Op Diagnosis: IOL Patient Data Age: 34 Gender: F Height: Weight: Allergies Allergy/AdvReac Type Severity Reaction Status Date / Time No Known Allergies Allergy Verified 05/20/24 15:30 Home Medications Medication Instructions Recorded Confirmed Type prenat.vits,radha,ecn-yltu-aoxnb 1 tablet PO HS 01/04/21 05/20/24 History Laboratory Tests 06/03/24 06/03/24 06:51 06:52 WBC Pending RBC Pending Hgb Pending Hct Pending MCV Pending MCH Pending MCHC Pending RDW Pending Plt Count Pending MPV Pending Immature Gran % (Auto) Pending Neut % (Auto) Pending Lymph % (Auto) Pending [place] % (Auto) Pending Eos % (Auto) Pending Baso % (Auto) Pending Lymph # (Auto) Pending [place] # (Auto) Pending Eos # (Auto) Pending Baso # (Auto) Pending Abs Immat Gran (auto) Pending Absolute Neuts (auto) Pending Absolute Nucleated RBC Pending Nucleated RBC % Pending RPR Pending HIV 1&2 Ab/P24 Ag 4thGn Pending Patient hx anesthesia problems: none Family hx anesthesia problems: none Results Review: All pre-operative results and documents have been reviewed as part of the pre- operative evaluation. [facility] Family History Family History Father Hypertension Heart disease Grandparent Diabetes mellitus Gout Heart disease Cancer Social History Social History Smoking status: Never smoker Substance use: never Spiritual care concerns: No Exam Day of Procedure 06/03/24 07:03
[2024-06-03] MEDS: LACTATED RINGERS 1,000 ML 125 ML IV CONT ×3 (07:30→16:52)
[2024-06-03] MEDS: OXYTOCIN 30 UNITS/NS 500 ML 30 UNITS/500 ML BAG IV CONT (07:30)
[2024-06-03 07:45] LABS: Rapid Plasma Reagin Non-Reactive (NonReactive)
[2024-06-03 08:00] LABS: HIV 1/2 Ab P24 Ag Result Negative (Negative)
--- NOTE | 2024-06-03 12:03 | PM.OBPNLAB ---
Pain Control Date/time seen: 06/03/24 12:03 Pain control: tolerating well and epidural Pelvic Exam Dilation (cm): 10 Effacement (%): 100 station: 0 Amniotic membrane status: Leaking
[2024-06-03] MEDS: FAMOTIDINE 20 MG/2 ML VIAL IV PUSH (16:13)
[2024-06-03] MEDS: CALCIUM CARBONATE (TUMS) 500 MG (200 MG ELEMENTAL) PO (16:15)
--- NOTE | 2024-06-03 16:18 | PM.OBPNLAB ---
Pain Control Date/time seen: 06/03/24 16:18 Pain control: tolerating well and epidural Comments: Patient has pushed for 2hours appears fatigued heart tones remained reassuring suprapatellar at rest see if we give another try and little bit discussed the possibility of section Pelvic Exam Dilation (cm): 10 Effacement (%): 100 station: 0 Amniotic membrane status: Leaking
--- NOTE | 2024-06-03 17:58 | PM.OBPNLAB ---
Pain Control Date/time seen: 06/03/24 17:58 Pain control: tolerating well and epidural Comments: Patient has no pushed for more than 3hours she is unable to bring the head under the pubic bone about offered her section. Risks and benefits have been reviewed in great detail and she agrees to proceed Pelvic Exam Dilation (cm): 10 Effacement (%): 100 station: 0 Amniotic membrane status: Leaking
--- NOTE | 2024-06-03 18:00 | WPDHPUPDATE1 ---
History and Physical Update Update Date/Time: 06/03/24 18:00 History and Physical has been reviewed, including an updated exam of the patient. There are NO changes in the patient's condition. Risks, benefits, and alternatives have been discussed and questions answered. Patient agrees to proceed with procedure.
[2024-06-03] MEDS: ONDANSETRON INJ 4 MG/2 ML VIAL IV PUSH (18:11)
[2024-06-03] MEDS: AZITHROMYCIN 500 MG/NS 250 ML 500 MG/250 ML BAG 250 MG IVPB (18:49)
[2024-06-03] MEDS: ceFAZolin 2 GM/D5W 50 ML 2 GM/50 ML BAG IVPB (18:49)
--- NOTE | 2024-06-03 19:52 | W.PM.OBCSD ---
OB - Delivery Note Procedure Delivery date: 06/03/24 Pre-op diagnosis: Arrest of Decent Post-op Diagnosis: Same Induction method: AROM Delivery augmentation: Rupture of Membranes Delivery monitor: External FHT and External Uterine Prior to decision for section, ACOG/SMFM labor guidelines were considered and discussed with the patient and staff. Decision made to proceed with the section.: Yes Procedure Performed: Primary Surgeon: Mazin Aviles MD Anesthesia type: Epidural Description of Procedure/Findings: Patient was admitted for induction of labor at term. She progressed to completely dilated it was unable to push the baby is the 0 station she was apprised of the risks and benefits of the section and agreed Patient was prepped and draped in the normal sterile fashion placed in the supine position. Under excellent epidural anesthesia the abdomen was entered in Pfannenstiel fashion progressed through layers to the fascia. Fascia incised midline cure number fashion bilaterally underlying muscles sharply dissected. Parietal peritoneum entered by Charlene clamps and by sharp dissection carried superiorly and inferiorly dome of the bladder. Bladder blade was placed and bladder flap formed bladder blade returned a low transverse incision made the head delivered in the OPP position it was deep into the pelvis and was difficult. The nuchal cord checked noted be loose x1 renal occiput anterior posterior shoulder delivered spontaneously. Cord clamped and cut and passed off the table with a cry placenta was delivered intact manually and uterus delivered on the abdomen other it appeared to be an extension of both laterally and caudally the. After assuring no membranes remained in the uterus uterus closed continuous running locking 0 Vicryl from lateral edge to lateral edge followed by 2nd imbricating running locking 0 Vicryl from lateral edge to lateral edge hemostasis appeared. The ovaries and tubes appeared within normal limits in the uterus returned to the abdomen hysterotomy incision inspected 1 last time no be hemostatic. I [place] term was placed over the raw surface area. The fascia was closed with continuous running 0 Vicryl from lateral edge to lateral edge. Irrigation subcutaneous layer and skin closed with 4 Monocryl and glue blood loss was 8 1810cc. All sponge, needle, instrument counts were correct. There were no immediate complications Estimated Blood Loss: 1,810 Drains: No Packing: No Pathology: None sent Complications: No immediate complications Condition: Stable Baby Date of : 06/03/24 Time of : 19:30 Gestational Age by Date: 39 Infant gender: Female Weight (pounds): 8 Weight (ounces): 13 presentation: vertex position: Right Occiput Posterior Placenta delivery description: Spontaneous Cord Vessel Description: 3 Vessels, Nuchal Cord, Loose and Reduced score one minute: 9 score five minutes: 9
--- NOTE | 2024-06-03 19:57 | PM.DS ---
DS: Admitting Diagnosis Discharge Date 06/07/24 <Heidy Dia MD - Last Filed: 06/07/24 09:41> Admitting Diagnosis term <Mazin Aviles MD - Last Filed: 06/03/24 19:58> DS: Discharge Diagnosis Discharge Diagnosis (1) Term : Code(s): Z34.90 - Encounter for supervision of normal , unspecified, unspecified trimester <Mazin Aviles MD - Last Filed: 06/03/24 19:58> Status: Acute <Mazin Aviles MD - Last Filed: 06/03/24 19:58> (2) Anemia: Code(s): D64.9 - Anemia, unspecified <Mazin Aviles MD - Last Filed: 06/03/24 19:58> Status: Acute <Mazin Aviles MD - Last Filed: 06/03/24 19:58> Assessment and Plan: s/p 2 units PRBC <Heidy Dia MD - Last Filed: 06/07/24 09:41> DS: Summary Hospital Course Reason for hospitalization: patient was admitted for induction of labor at term she underwent low-transverse section on 06/03/2024 for failure to descend <Mazin Aviles MD - Last Filed: 06/03/24 19:58> Hospital Course: patient's hospital course was relatively. She afebrile. She was up, voiding without difficulty regular diet, ambulating, generally without complaints. <Mazin Aviles MD - Last Filed: 06/03/24 19:58> She afebrile. She was voiding without difficulty, regular . Patient symptomatic on POD 3 with anemia having elevated pulse and dizziness. Repeat H/H lower at 5.7. Given 2 units PRBC and now asymptomatic. <Heidy Dia MD - Last Filed: 06/07/24 09:41> Time Spent with Patient Time attestation: Total time spent providing and/or coordinating discharge services: <Mazin Aviles MD - Last Filed: 06/03/24 19:58> Exam Const: General: cooperative, healthy appearing and comfortable <Mazin Aviles MD - Last Filed: 06/03/24 19:58> Nutritional Appearance: average body habitus <Mazin Aviles MD - Last Filed: 06/03/24 19:58> Orientation/consciousness: oriented to person, oriented to place and oriented to time <Mazin Aviles MD - Last Filed: 06/03/24 19:58> Resp: Effort & Inspection: normal respiratory effort <Mazin Aviles MD - Last Filed: 06/03/24 19:58> Cardio: Rate: regular rate <Mazin Aviles MD - Last Filed: 06/03/24 19:58> Rhythm: regular rhythm <Mazin Aviles MD - Last Filed: 06/03/24 19:58> Heart sounds: S1 normal heart sound present and S2 normal heart sound present <Mazin Aviles MD - Last Filed: 06/03/24 19:58> GI: Inspection: normal to inspection and incision ( Wound clean dry and) <Maizn Aviles MD - Last Filed: 06/03/24 19:58> DS: Data Data Completed and Pending Labs on day of discharge: Labs from last 24 hours 06/03/24 06/03/24 06:52 06:51 WBC 8.2 RBC 3.30 L Hgb 10.9 L Hct 32.3 L MCV 97.9 MCH 33.0 MCHC 33.7 RDW 14.4 Plt Count 188 MPV 11.5 H Immature Gran % (Auto) 2.9 H Neut % (Auto) 52.2 Lymph % (Auto) 36.2 [place] % (Auto) 6.4 Eos % (Auto) 1.5 Baso % (Auto) 0.8 Lymph # (Auto) 2.98 [place] # (Auto) 0.5 Eos # (Auto) 0.1 Baso # (Auto) 0.1 Abs Immat Gran (auto) 0.24 H Absolute Neuts (auto) 4.3 Absolute Nucleated RBC 0.000 Nucleated RBC % 0.0 RPR Non-reactive HIV 1&2 Ab/P24 Ag 4thGn Negative Blood Type O Negative Antibody Screen Negative <Mazin Aviles MD - Last Filed: 06/03/24 19:58> Discharge Plan Discharge Attending physician on discharge: Mazin Yanez <Mazin Aviles MD - Last Filed: 06/03/24 19:58> Mazin Yanez <Heidy Dia MD - Last Filed: 06/07/24 09:41> Discharging Clinician: Heidy Dia <Mazin Aviles MD - Last Filed: 06/03/24 19:58> Heidy Dia <Heidy Dia MD - Last Filed: 06/07/24 09:41> Patient Disposition: Home, Self-Care <Mazin Harris
[2024-06-03] MEDS: HYDROmorphone HCL INJ (*CRX) 1 MG/ML SYR 0.5 MG IV PUSH ×2 (20:42→21:05)
--- NOTE | 2024-06-03 22:05 | PC.NURSE ---
report to Dennise Harrsi RN all questions answered at this time.
--- NOTE | 2024-06-03 22:06 | PC.NURSE ---
FHT in the OR were 140's
--- NOTE | 2024-06-03 22:28 | PC.NURSE ---
Addendum entered by Dennise Finnegan RN 06/04/24 07:26: Room number#285 at 2228. Original Note: Patient transferred to post room #[id number] via ( Bed ). Support person present. Oriented to unit, room, information board, rooming in, admission packet and security measures. Patient verbalizes understanding.
[2024-06-03 23:01] LABS: Hemoglobin 8.7 g/dL (12.0-15.0)
[2024-06-03] MEDS: KETOROLAC 15 MG/ML VIAL (*BKC) IV PUSH (23:40)
[2024-06-03] MEDS: ACETAMINOPHEN 325 MG TABLET 650 MG PO (23:40)
[2024-06-04] MEDS: DEXTROSE 5%/0.45% SOD CHL 1,000 ML 125 ML IV CONT (02:10)
[2024-06-04] MEDS: ACETAMINOPHEN 325 MG TABLET 650 MG PO ×3 (05:26→17:32)
[2024-06-04] MEDS: HYDROcodone/acetaminophen (*CRX) 5-325 MG TABLET 1 TAB PO ×4 (05:26→22:38)
[2024-06-04] MEDS: KETOROLAC 15 MG/ML VIAL (*BKC) IV PUSH ×3 (05:26→17:32)
[2024-06-04 05:50] VITALS: BP 119/79; PULSE 82; RESP 16; TEMP 36.8; O2SAT 98
[2024-06-04 05:58] LABS: Basophils Percent Auto 0.2 % (0.2-1.2); Hematocrit 22.2 % (37.0-47.0); Hemoglobin 7.4 g/dL (12.0-15.0); Immature Granulocyte Absolute 0.11 K/mm3 (0.00-0.031); Immature Granulocyte Percent A 0.6 % (0-0.5); Lymphocytes Absolute Auto 1.99 K/mm3 (0.9-3.2); Lymphocytes Percent Auto 11.7 % (18.3-44.2); Mean Corpuscular HGB Conc 33.3 g/dl (32-36); Mean Corpuscular Hemoglobin 32.7 pg (26-34); Mean Corpuscular Volume 98.2 fl (80-100); Mean Platelet Volume 12.2 fl (7.4-10.4); Neutrophils Absolute Auto 13.9 K/mm3 (1.3-6.7); Neutrophils Percent Auto 81.5 % (45.5-73.1); Platelet Count Result 186 k/mm3 (150-375); Red Blood Count 2.26 M/mm3 (4.2-5.4); Red Cell Distribution Width 14.4 % (11.5-14.5)
[2024-06-04] MEDS: HYDROcodone/acetaminophen (*CRX) 10-325 MG TABLET 1 TAB PO (05:58)
--- NOTE | 2024-06-04 07:22 | PM.OBPNVD ---
OB - PN: Subj Subjective Date/time seen: 06/04/24 07:22 Patient comments: no complaints and pain well controlled baby status: doing well and nursing well OB - PN: Obj Data Labs 06/04/24 04:42 Labs: Laboratory Results - last 24 hr 06/03/24 06/03/24 06/03/24 06:51 06:52 22:42 WBC RBC Hgb 8.7 L Hct 26.0 L MCV MCH MCHC RDW Plt Count MPV Immature Gran % (Auto) Neut % (Auto) Lymph % (Auto) [place] % (Auto) Eos % (Auto) Baso % (Auto) Lymph # (Auto) [place] # (Auto) Eos # (Auto) Baso # (Auto) Abs Immat Gran (auto) Absolute Neuts (auto) Absolute Nucleated RBC Nucleated RBC % RPR Non-reactive HIV 1&2 Ab/P24 Ag 4thGn Negative Blood Type O Negative Antibody Screen Negative 06/04/24 04:42 WBC 17.0 H RBC 2.26 L Hgb 7.4 L Hct 22.2 L MCV 98.2 MCH 32.7 MCHC 33.3 RDW 14.4 Plt Count 186 MPV 12.2 H Immature Gran % (Auto) 0.6 H Neut % (Auto) 81.5 H Lymph % (Auto) 11.7 L [place] % (Auto) 6.0 Eos % (Auto) 0.0 Baso % (Auto) 0.2 Lymph # (Auto) 1.99 [place] # (Auto) 1.0 H Eos # (Auto) 0.0 Baso # (Auto) 0.0 Abs Immat Gran (auto) 0.11 H Absolute Neuts (auto) 13.9 H Absolute Nucleated RBC 0.000 Nucleated RBC % 0.0 RPR HIV 1&2 Ab/P24 Ag 4thGn Blood Type Antibody Screen OB - PN A/P Plan day: 1 Plan: routine care Time Spent With Patient Time: Total time spent is greater than 50% in coordination of care (as documented) at patient's floor/unit and/or counseling patient: Time with patient: less than 15 minutes Exam Const: General: cooperative, healthy appearing and comfortable Nutritional Appearance: average body habitus Orientation/consciousness: oriented to person, oriented to place and oriented to time HENMT: Head: normal to inspection Resp: Effort & Inspection: normal respiratory effort Cardio: Rate: regular rate Rhythm: regular rhythm Heart sounds: S1 normal heart sound present and S2 normal heart sound present GI: Inspection: normal to inspection
[2024-06-04] MEDS: SIMETHICONE 80 MG TAB.CHEW PO ×3 (07:36→17:33)
[2024-06-04] MEDS: POLYSACCHARIDE IRON COMPLEX 150 MG CAPSULE PO ×2 (07:36→17:33)
[2024-06-04] MEDS: DOCUSATE SODIUM 100 MG CAPSULE PO ×2 (07:36→17:33)
[2024-06-04] MEDS: LIDOCAINE 5% PATCH 1 PATCH TRANSDERM (07:36)
[2024-06-04] MEDS: MULTIVIT/MIN/PREN/FOL AC/IRON TABLET 1 TAB PO (07:36)
[2024-06-04 08:45] VITALS: BP 107/72; PULSE 95; RESP 16; TEMP 36.7; O2SAT 97
[2024-06-04 12:15] VITALS: BP 108/69; PULSE 88; RESP 16; TEMP 36.3; O2SAT 99
--- NOTE | 2024-06-04 13:59 | WPDANLDPN2 ---
Anes-Prog Note L&D Date/Time: 06/04/24 13:59 Comfortable throughout: labor, delivery and section Neuraxial method: epidural Epidural/Spinal procedure site: clean & non-tender Neuro status: Neuro function grossly intact. Cardiovascular status: normal Respiratory status: normal Airway patency: baseline Mental status: baseline Post-Op hydration status: normal Vital Signs: Last Vital Signs Temp 36.3 C L 06/04/24 12:15 Pulse 88 06/04/24 12:15 Resp 16 06/04/24 12:15 BP 108/69 06/04/24 12:15 Pulse Ox 99 06/04/24 12:15 O2 Del Method Room Air 06/03/24 23:27 Pain score (VAS): 4/10 I/O: Intake & Output 06/03/24 06/04/24 06/04/24 23:59 07:59 15:59 Intake Total 1000 600 Output Total 75 200 Balance 925 400 Post-procedural complaints: none Patient feedback: Patient satisfied with anesthetic care.
--- NOTE | 2024-06-04 13:59 | WPDANLDNPN2 ---
Anes-Prog Note L&D-Neuraxial Date/Time: 06/04/24 13:59 Neuraxial medications: epidural PF morphine Opiod-related complaints: none Patient feedback: Patient satisfied with post-operative pain management.
[2024-06-04] MEDS: RHO(D) IMMUNE GLOBULIN 300 MCG/2 ML SYRINGE IM (14:40)
[2024-06-04 22:38] VITALS: BP 105/66; PULSE 99; RESP 16; TEMP 36.8; O2SAT 98
[2024-06-05] MEDS: ACETAMINOPHEN 325 MG TABLET 650 MG PO ×4 (01:02→19:00)
[2024-06-05] MEDS: IBUPROFEN 600 MG TABLET PO ×4 (01:02→19:00)
[2024-06-05] MEDS: HYDROcodone/acetaminophen (*CRX) 10-325 MG TABLET 1 TAB PO ×4 (02:08→20:05)
--- NOTE | 2024-06-05 06:52 | PM.OBPNVD ---
OB - PN: Subj Subjective Date/time seen: 06/05/24 06:52 Patient comments: no complaints and pain well controlled baby status: doing well and nursing well OB - PN: Obj Data Labs 06/04/24 04:42 Labs: Laboratory Results - last 24 hr 06/04/24 05:33 Blood Type O Negative Antibody Screen TNP Screen Negative Baby's Blood Type O pos Baby's LUPE Negative Doses of RhIg Required 1 OB - PN A/P Plan day: 2 Plan: routine care Time Spent With Patient Time: Total time spent is greater than 50% in coordination of care (as documented) at patient's floor/unit and/or counseling patient: Time with patient: less than 15 minutes Exam Const: General: cooperative, healthy appearing and comfortable Nutritional Appearance: average body habitus Orientation/consciousness: oriented to person, oriented to place and oriented to time HENMT: Head: normal to inspection Resp: Effort & Inspection: normal respiratory effort Cardio: Rate: regular rate Rhythm: regular rhythm Heart sounds: S1 normal heart sound present and S2 normal heart sound present GI: Inspection: normal to inspection and incision (cdi)
[2024-06-05] MEDS: LIDOCAINE 5% PATCH 1 PATCH TRANSDERM (07:03)
[2024-06-05] MEDS: DOCUSATE SODIUM 100 MG CAPSULE PO ×2 (07:04→16:21)
[2024-06-05] MEDS: SIMETHICONE 80 MG TAB.CHEW PO ×3 (07:04→16:21)
[2024-06-05] MEDS: POLYSACCHARIDE IRON COMPLEX 150 MG CAPSULE PO ×2 (07:04→16:21)
[2024-06-05 07:50] VITALS: BP 116/60; PULSE 115; RESP 16; TEMP 36.9; O2SAT 97
[2024-06-05 19:00] VITALS: BP 116/70; PULSE 110; RESP 18; TEMP 36.6
[2024-06-06] VITALS (10 sets, daily range): BP systolic 115–131; BP diastolic 70–86; PULSE 107–125; RESP 16–18; TEMP 36.6–37.1; O2SAT 100
[2024-06-06] MEDS: HYDROcodone/acetaminophen (*CRX) 5-325 MG TABLET 1 TAB PO ×4 (00:50→17:38)
[2024-06-06] MEDS: IBUPROFEN 600 MG TABLET PO ×4 (00:50→19:20)
[2024-06-06] MEDS: ACETAMINOPHEN 325 MG TABLET 650 MG PO ×4 (00:50→19:20)
[2024-06-06] MEDS: DOCUSATE SODIUM 100 MG CAPSULE PO ×2 (07:20→17:38)
[2024-06-06] MEDS: POLYSACCHARIDE IRON COMPLEX 150 MG CAPSULE PO ×2 (07:20→17:38)
[2024-06-06] MEDS: SIMETHICONE 80 MG TAB.CHEW PO ×3 (07:20→17:38)
[2024-06-06] MEDS: LIDOCAINE 5% PATCH 1 PATCH TRANSDERM (07:21)
--- NOTE | 2024-06-06 10:18 | PM.OBPNVD ---
OB - PN: Subj Subjective Date/time seen: 06/06/24 10:18 Patient comments: other (still dizzy and needs help walking) baby status: doing well OB - PN: Obj Data Labs 06/04/24 04:42 OB - PN A/P Assessment and Plan (1) Anemia: Code(s): D64.9 - Anemia, unspecified Status: Acute Assessment and Plan: -secondary to acute blood loss with csection -with pulse increasing and still symptomatic will recheck H/H -consider transfusion if dropped again -consider dc home on rest and iron if stable Plan day: 3 Time Spent With Patient Time: Total time spent is greater than 50% in coordination of care (as documented) at patient's floor/unit and/or counseling patient: Exam Narrative: inc c/d/i : Bimanual exam- vagina & uterus: other (Uterus firm, nt @U)
[2024-06-06 10:46] LABS: Hemoglobin 5.6 g/dL (12.0-15.0)
[2024-06-06 10:47] LABS: Hematocrit 16.6 % (37.0-47.0)
[2024-06-06] MEDS: HYDROcodone/acetaminophen (*CRX) 10-325 MG TABLET 1 TAB PO ×2 (14:01→20:57)
[2024-06-06] MEDS: WITCH HAZEL 40 PADS 1 PAD (15:15)
[2024-06-06 22:06] LABS: Hematocrit 21.4 % (37.0-47.0); Hemoglobin 7.1 g/dL (12.0-15.0)
[2024-06-07] MEDS: HYDROcodone/acetaminophen (*CRX) 10-325 MG TABLET 1 TAB PO ×2 (01:03→05:35)
[2024-06-07] MEDS: IBUPROFEN 600 MG TABLET PO ×2 (01:03→07:54)
[2024-06-07] MEDS: ACETAMINOPHEN 325 MG TABLET 650 MG PO ×2 (01:03→07:55)
[2024-06-07 07:44] VITALS: BP 122/81; PULSE 107; RESP 20; TEMP 36.5; O2SAT 97
[2024-06-07] MEDS: POLYSACCHARIDE IRON COMPLEX 150 MG CAPSULE PO (07:55)
[2024-06-07] MEDS: SIMETHICONE 80 MG TAB.CHEW PO (07:58)
--- NOTE | 2024-06-07 09:37 | PM.OBPNVD ---
OB - PN: Subj Subjective Date/time seen: 06/07/24 09:37 Interval history: Feeling better after 2 units blood. No longer dizzy or requiring assistance to ambulate. Patient comments: pain well controlled Bowman baby status: doing well OB - PN: Obj Data Labs 06/06/24 22:00 Labs: Laboratory Results - last 24 hr 06/04/24 06/06/24 06/06/24 05:33 10:34 22:00 Hgb 5.6 L* 7.1 L Hct 16.6 L* 21.4 L Blood Type O Negative Antibody Screen TNP Screen Negative Baby's Blood Type O pos Baby's LUPE Negative Doses of RhIg Required 1 Crossmatch See Detail OB - PN A/P Assessment and Plan (1) Anemia: Code(s): D64.9 - Anemia, unspecified Status: Acute Assessment and Plan: s/p 2 units dc with iron BID Plan day: 4 Plan: routine care and discharge home Time Spent With Patient Time: Total time spent is greater than 50% in coordination of care (as documented) at patient's floor/unit and/or counseling patient: Exam Narrative: inc c/d/i abdomen soft, nt, nd fundus firm nt
[2024-06-07] MEDS: INFLUENZA TRIVALENT VACCINE 45 MCG/0.5 ML SYRINGE IM (11:13)
[2024-06-07] MEDS: HYDROcodone/acetaminophen (*CRX) 5-325 MG TABLET 1 TAB PO (11:13)
[2024-06-07] MEDS: LIDOCAINE 5% PATCH 1 PATCH TRANSDERM (12:21)
[2024-06-08 13:54] VITALS: BP 134/85; PULSE 117; RESP 18; TEMP 36.4
== END 2024-06-07 12:35 | disposition home or self-care (01) | DRG 787 ==
LOC: ANHLDR 18:02 → ANHOB2 06-06 09:58 → ANHLDR 06-09 11:47 → ANHOB2 06-09 11:47
PROVIDERS: Admitting Provider Obstetrics & Gynecology; Visit Provider Obstetrics & Gynecology Gynecology
PROC: 10D00Z1 Extraction of Products of Conception, Low, Open Approach (ICD-10-PCS; CPT 59514; principal; 2024-06-03 18:30)
DX: O62.1 Secondary uterine inertia (principal); D62 Acute posthemorrhagic anemia; Z37.0 Single live birth; Z3A.39 39 weeks gestation of pregnancy; O90.81 Anemia of the puerperium; Z23 Encounter for immunization
CPT/HCPCS: 36415; 36430; 85014; 85018; 85025; 85461; 86592; 86703; 86850; 86900; 86901; 86920; 90384; 90471; 90656; A9270; G0008; G0432; J0456; J0690; J1100; J1170; J1200; J1885; J2175; J2274; J2405; J2590; J2704; J2790; J2795; J3010; J7120; P9016

== ENCOUNTER 2024-07-16 00:44 | Day surgery (SDC) | payer OTHER, SELFPAY ==
--- NOTE | 2024-07-07 16:16 | PC.NURSE ---
Report to the Outpatient Waiting Room, entrance under the green pavilion located off [facility], at time 0630 on date 07/16/04. Planned Procedure Time: 0830.? Time changes happen often and if your time is changed the preop area will call you the afternoon before. - You and your visitor will be asked to self-screen and do not enter if you have any COVID symptoms. Please call surgeon if you need to reschedule. - A mask is optional within the hospital at this time. Patients may have clear liquids (water, carbonated beverages, clear teas, apple juice) until 3 hours prior to surgery with a maximum of 20 ounces. 0530 - No food from midnight until time of surgery and no smoking - Infants may have breast milk until 4 hours before surgery, infant formula 6 hours prior to surgery. - Children will be allowed to drink immediately following surgery.? If applicable, please bring a bottle or sippy cup to assist with drinking. Juice, water, soda, and popsicles are readily available.? For infants on formula, please bring formula the day of surgery.? Pacifiers are allowed. Take only the following medications with a SIP of water on the morning of surgery: None DO NOT STOP ANY OF YOUR OTHER PRESCRIPTION MEDICATIONS PRIOR TO SURGERY EXCEPT THE FOLLOWING Medications to discontinue per physician Multivitamin/Supplement Date to take last dose 07/13/24 Please no make-up, nail chinese, hairspray, perfume, deodorant, or body powder the day of surgery.? No jewelry (including any body piercings) or valuables the day of surgery, leave them at home.? Please take a shower or bath the night before, or the morning of, surgery with an antibacterial soap.? Wear comfortable, loose fitting clothing.? Children are encouraged to wear pajamas. - Jewelry must be removed prior to entering the operating room.? Rings and piercings that are not removed may be cut off. - The hospital will not accept responsibility for valuables.? - Please leave all valuables, including medications, at home the day of surgery. If you are going home after surgery, a licensed test car driver must drive you home.? - NO public transportation without another adult if you receive anesthesia. - We recommend that an adult stay with you for 24 hours following discharge. - We also recommend that you do not drive, make important decision, drink alcoholic beverages, or take any drugs that were not prescribed by your health care provider for at least 24 hours after your discharge time. For Pediatric surgeries, we recommend two adults accompany the child home. Follow any additional instructions given to you from your surgeon. Telephone instructions given to Patient- Katherine Moran and asked if any additional questions and then verbalized understanding. Patient advised to call surgeon office or pre surgery nurse liaison [phone] if any additional questions.
[2024-07-07 16:24] VITALS: BMI 23.3
--- NOTE | 2024-07-14 07:29 | PM.IMHP ---
H&P: HPI History of Present Illness Date/Time: 07/14/24 07:29 Chief Complaint: Desires permanent sterilization Narrative: 34-year-old multiparous patient admitted for laparoscopic tubal ligation secondary to desire the permanent sterilization. She was offered alternatives including but exclusive of pills patches injections long-acting reproductive contraception and she understands this to be a permanent irreversible procedure with a failure rate of 11/999 subsequent risk of ectopic bleeding and risks and benefits of procedure reviewed in full. She had all questions answered. She Asked to proceed PMFSH Family History Family History Father Hypertension Heart disease Grandparent Diabetes mellitus Gout Heart disease Cancer Social History Social History Smoking status: Never smoker Substance use: never Do You Feel Safe in your Home?: Yes Lack of Transportation: No Lack of Food: Never True Current Housing: I Have Housing Concerned About Future Housing: No Difficulty Paying Gas/Electric Bills: No Difficulty Paying for Meds: No Currently Unemployed: No Education: Master's Degree or Higher Difficulty w/ Childcare or Family Care: No Spiritual care concerns: No Meds Home Medications and Allergies Home Medications Medication Instructions Recorded Confirmed Type prenat.vits,radha,bya-qcfm-kiucc 1 tablet PO HS 01/04/21 07/07/24 History Allergies Allergy/AdvReac Type Severity Reaction Status Date / Time No Known Allergies Allergy Verified 07/07/24 16:06 Exam Const: General: cooperative, healthy appearing and comfortable Nutritional Appearance: average body habitus Orientation/consciousness: oriented to person, oriented to place and oriented to time HENMT: Head: normal to inspection Resp: Effort & Inspection: normal respiratory effort Cardio: Rate: regular rate Rhythm: regular rhythm Heart sounds: S1 normal heart sound present and S2 normal heart sound present GI: Inspection: normal to inspection : External Female Exam: normal external appearance Speculum Exam - Vagina: normal appearance of the vagina Speculum Exam - Cervix: normal appearance of the cervix Bimanual exam- vagina & uterus: non-tender Bimanual Exam- Adnexa, other: normal adnexae Assessment and Plan Assessment and plan (1) Sterilization: Code(s): Z30.2 - Encounter for sterilization Status: Acute Assessment and Plan: proceed with laparoscopic bilateral tubal ligation
[2024-07-16] VITALS (11 sets, daily range): BP systolic 106–129; BP diastolic 69–83; PULSE 57–82; RESP 12–16; TEMP 36–36.4; O2SAT 96–100
--- NOTE | 2024-07-16 05:32 | WPDHPUPDATE1 ---
History and Physical Update Update Date/Time: 07/16/24 05:32 History and Physical has been reviewed, including an updated exam of the patient. There are NO changes in the patient's condition. Risks, benefits, and alternatives have been discussed and questions answered. Patient agrees to proceed with procedure.
[2024-07-16] MEDS: LACTATED RINGERS 1,000 ML 30 ML IV CONT ×2 (07:15→09:06)
[2024-07-16] MEDS: ACETAMINOPHEN 500 MG TABLET 1000 MG PO (07:15)
[2024-07-16] MEDS: KETOROLAC 15 MG/ML VIAL (*BKC) IV PUSH (07:15)
--- NOTE | 2024-07-16 07:22 | P.PNAN_ITS ---
Anes - Initial Pre Proc Eval Procedure: Operation Date: 07/16/24 07:30 Proposed Procedures p Laparoscopic Bilateral Tubal Ligation with Fallopian Rings - Mazin Aviles MD Date/Time: 07/16/24 07:22 Surgeon: Mazin Aviles MD Pre Op Diagnosis: Desire Sterilization Patient Data Age: 34 Gender: F Height: 1.75 m Weight: 71.8 kg Allergies Allergy/AdvReac Type Severity Reaction Status Date / Time No Known Allergies Allergy Verified 07/16/24 07:24 Home Medications Medication Instructions Recorded Confirmed Type prenat.vits,radha,tet-[id number]-[id number] 1 tablet PO HS 01/04/21 07/07/24 History hydrocodone 5 mg-acetaminophen 325 1 tablet PO Q4H PRN pain #20 tabs 07/16/24 Rx mg tablet Patient hx anesthesia problems: none Family hx anesthesia problems: none Prior surgeries: tonsillectomy Results Review: All pre-operative results and documents have been reviewed as part of the pre- operative evaluation. [facility] [place] Family History Family History Father Hypertension Heart disease Grandparent Diabetes mellitus Gout Heart disease Cancer Social History Social History Smoking status: Never smoker Substance use: never Do You Feel Safe in your Home?: Yes Lack of Transportation: No Lack of Food: Never True Current Housing: I Have Housing Concerned About Future Housing: No Difficulty Paying Gas/Electric Bills: No Difficulty Paying for Meds: No Currently Unemployed: No Education: Master's Degree or Higher Difficulty w/ Childcare or Family Care: No Spiritual care concerns: No Anes - Eval Final PreProcedure Day of Procedure 07/16/24 07:22 Heart: regular rate and rhythm Airway: Mallampati scale class II Neurological: alert and oriented Last oral intake: >/= 8 hours ASA classification: II Emergent: no Anesthetic plan: proceed Anesthesia type and monitoring: general and standard monitoring Results Review: All pre-operative results and documents have been reviewed as part of the pre- operative evaluation. Informed Consent: The patient's anesthetic plan and its attendant risks and benefits were discussed with the patient/family/POA. Questions were solicited and answers provided to the satisfaction of the patient/family/POA.
[2024-07-16 07:26] LABS: BEDSIDEPREGUCG Negative (Negative)
--- NOTE | 2024-07-16 08:19 | P.OP_ITS ---
Procedure Note - Detailed Date of Procedure 07/16/24 Pre-op Diagnosis Desire Sterilization Post-op Diagnosis Same Procedure Performed Laparoscopic tubal ligation via cauterization Surgeon Mazin Aviles MD Anesthesia General Indications 34-year-old female [address] desires permanent irreversible st erilization Findings there were lot of adhesions present tube for markedly swollen. For this reason she was converted from laparoscopic tubal with rings 2 use of bipolar cautery. Description of Procedure Patient was prepped draped in normal sterile fashion placed in dorsal position. Under excellent general trach anesthesia speculum placed in posterior fornix vagina. Anterior lip the cervix grasped with single-tooth tenaculum Hoskins's cannula inserted attached to the single-tooth. Bladder was drained clear urine weighted speculum was. The gloves were changed. An infraumbilical incision made the Veress needle passed in the abdomen. Abdomen filled with CO2 gas to 15mm Hg. The 5mm trocar advanced under direct visualization assuring injury. Multiple adhesions were seen anteriorly and the tubes were noted markedly swollen. These adhesions were sharply dissected occasionally using cautery. The tubes appeared thick and swollen and for this reason decision was made to not use fallopian tube rings and use the Kleppinger. The Kleppinger was placed on the right fallopian tube burned in 3 set of 3 across with excellent blanching. In similar fashion on the left this was burned in a set of 3 with excellent blanching. Blood loss was estimated about 25cc after irrigating and cleaning the area. The lower site removed. The gas removed from the abdomen. The upper site removed. Incisions closed with 4-0 Monocryl and glue. The instruments removed from the vagina. The patient went recovery in satisfactory condition. All sponge, needle, instrument counts were correct. There were no immediate complications Estimated Blood Loss 25 Drains No Packing No Pathology None sent Complications No immediate complications Condition Stable Disposition PACU
[2024-07-16] MEDS: fentaNYL CITRATE INJ (*CRX) 100 MCG/2 ML VIAL 25 MCG IV PUSH ×2 (09:10→09:13)
[2024-07-16] MEDS: ONDANSETRON INJ 4 MG/2 ML VIAL IV PUSH (10:05)
[2024-07-16] MEDS: oxyCODONE HCL (*CRX) 5 MG TAB IR PO (10:21)
== END 2024-07-16 10:52 | disposition home or self-care (01) ==
PROVIDERS: Visit Provider Obstetrics & Gynecology
PROC: (CPT 58671; principal; 2024-07-16 07:30)
DX: Z30.2 Encounter for sterilization (principal); N73.6 Female pelvic peritoneal adhesions (postinfective); Z79.891 Long term (current) use of opiate analgesic; Z80.9 Family history of malignant neoplasm, unspecified; Z82.49 Family history of ischemic heart disease and other diseases of the circulatory system
CPT/HCPCS: 58670; A4264; A9270; J1100; J1885; J2003; J2250; J2405; J2704; J3010; J7120